=== PATIENT | male | born 1985 | race Caucasian/White ===

== ENCOUNTER 2017-12-04 22:31 | Emergency (ER) | payer OTHER ==
[2017-12-04 22:42] VITALS: TEMP 97.7
--- NOTE | 2017-12-04 22:42 | EDPHY ---
H & P HPI/ROS: HPI CHIEF COMPLAINT: Fell on glass, right hand laceration HISTORY OF PRESENT ILLNESS: Patient is a 32-year-old male, otherwise healthy, he is unsure of his tetanus shot is up-to-date he presents emergency room stating that he was walking his dogs dog pulled on the leash she was carrying a glass he fell while holding the glass the glass shattered and lacerated his left hand. He has a 3 cm laceration in between the web space on the left hand in between the 2nd and 3rd digit. Palmar side. Venous blood present. On exam there is no evidence of tendon injury or bony abnormality. No arterial injury. He is neurovascular intact with full function. He is right-hand dominant. Past Medical History: Denies medical history except for attention deficit hyperactivity disorder Past Surgical History: Denies surgical history Social History: Alcohol this evening, denies drugs or tobacco. Family History: Noncontributory ROS REVIEW OF SYSTEMS: A comprehensive 10 point review of systems is otherwise negative aside from elements mentioned in the history of present illness. Exam Constitutional appears well nontoxic triage nursing summary reviewed, vital signs reviewed, awake/alert. Eyes normal conjunctivae and sclera, EOMI, PERRLA. HENT normal inspection, atraumatic, moist mucus membranes, no epistaxis, neck supple/ no meningismus, no raccoon eyes. Respiratory clear to auscultation bilaterally, normal breath sounds, no respiratory distress, no wheezing. Cardiovascular rate normal, regular rhythm, no murmur, no edema, distal pulses normal. Gastrointestinal soft, non-tender, no rebound, no guarding, normal bowel sounds, no distension, no pulsatile mass. Genitourinary no CVA tenderness. Musculoskeletal no midline vertebral tenderness, full range of motion, no calf swelling, no tenderness of extremities, no meningismus, good pulses, neurovascularly intact. Skin [place]: In between the web space palmar side 2nd and 3rd digit there is a 3 cm laceration present, the wound has been explored to the base, there is no foreign bodies visualized, no tendon vomit no arterial vomit no bony involvement, full range of motion. Neurovascular intact Neurologic awake, alert and oriented x 3, AAOx3, moves all 4 extremities equally, motor intact, sensory intact, CN II-XII intact, normal cerebellar, normal vision, normal speech. Psychiatric normal mood/affect. Heme/Lymph/Immune no lymphadenopathy. Differential Diagnosis: Includes but is not limited to in a particular order left hand laceration, soft tissue injury, bony abnormality, foreign body, need for tetanus need for wound care Medical Decision Making: Plan for this patient copiously irrigate his hand clean his wound out explored for foreign bodies, update his tetanus shot, and repair his laceration. Re-evaluation: Laceration Repair Procedure: Verbal Consent was obtained, Under sterile conditions, The patient had lidocaine with epinephrine used approximately 5ccs to local anesthetize the left hand laceration in between web space 2nd and 3rd. 4 sutures. Laceration. The wound was copiously irrigated with sterile fluid , the wound was explored for foreign bodies there were none visualized, the wound was explored with a sterile glove to the base. There are no deep structures involved, including no arterial injury. 5 interrupted 6.O PROLENE Sutures were placed in this patient's laceration. He had good close approximation of the wound edges. He Tolerated this well. Patient understands to have sutures removed in 14 days. Patient be placed in a finger splint for comfort. 2322: X-rays reviewed. No foreign bodies visualized. Patient placed in a splint for comfort. Sutures removed in 14 days. Source: Patient Constitutional: Initial Vital Signs Temperature (C) 36.5 C 12/04/17 22:40 Heart Rate 100 12/04/17 22:40 Respiratory Rate 18 12/04/17 22:40 Blood Pressure 129/69 H 12/04/17 22:40 Allergies/Adverse Reactions: No Known Allergies Allergy (Unverified 12/04/17 22:42) Home Medications: Medication Instructions Recorded Adderall 20 mg (*) 12/04/17 Medical Decision Making - Data Points Medications Given: Discontinued Medications Diphtheria/Tetanus/Acell Pertussis (Boostrix) 0.5 ml IM .ONCE ONE Stop: 12/04/17 22:49 Last Admin: 12/04/17 22:52 Dose: 0.5 ml Departure - Departure Disposition: Home, Routine, Self-Care Clinical Impression: Hand laceration Qualifiers: Encounter type: initial encounter Foreign body presence: without foreign body Laterality: left Qualified Code(s): S61.412A - Laceration without foreign body of left hand, initial encounter Condition: Fair Instructions: Care For Your Stitches (ED), Laceration (ED) Additional Instructions: 1. Sutures need to be removed in 14 days. 2. Watch for signs of infection this includes redness, drainage, pus, swelling or worsening pain 3. Finger splint for comfort and protection Referrals: NONE *PRIMARY CARE P,. [Primary Care Provider] - As per Instructions
[2017-12-04] MEDS ORDERED: TDAP ADULT 0.5 ML INJ (BOOSTRIX) IM ONE (22:48)
[2017-12-04 23:39] VITALS: BP 127/74; PULSE 73; RESP 19; O2SAT 97
== END 2017-12-04 23:40 | disposition home or self-care (01) ==
PROC: 0HQGXZZ Repair Left Hand Skin, External Approach (ICD-10-PCS; principal; 2017-12-04)
DX: S61.412A Laceration without foreign body of left hand, initial encounter (principal); Z23 Encounter for immunization; Y28.0XXA Contact with sharp glass, undetermined intent, initial encounter; Y93.01 Activity, walking, marching and hiking
CPT/HCPCS: L3925